=== PATIENT | female | born 1980 | race Caucasian/White ===

== ENCOUNTER 2020-08-04 10:35 | Emergency (ER) | payer OTHER ==
[~2020-08-04] VITALS: Ht 165.1 cm; Wt 133.7 kg
[2020-08-04 11:32] LABS: BASOPHILS % (AUTO) 0.8 % (0-1); EOSINOPHILS # (AUTO) 0.1 X10'3 (0-0.9); EOSINOPHILS % (AUTO) 2.1 % (0-6); HEMATOCRIT 40.4 % (35.0-45.0); HEMOGLOBIN 13.5 g/dl (12.0-16.0); LYMPHOCYTES # (AUTO) 1.5 X10'3 (1.1-4.8); MEAN CORPUSCULAR HEMOGLOBIN 29.2 PG (27.0-31.0); MEAN CORPUSCULAR HGB CONC 33.4 g/dL (33.0-36.5); MEAN CORPUSCULAR VOLUME 87.4 FL (78-98); MEAN PLATELET VOLUME 8.1 FL (7.4-10.4); MONOCYTES # (AUTO) 0.3 X10'3 (0-0.9); MONOCYTES % (AUTO) 5.6 % (2-12); NEUTROPHILS # (AUTO) 3.7 X10'3 (1.8-7.7); NEUTROPHILS % (AUTO) 65.5 % (42-75); PLATELET COUNT 280 X10'3 (140-440); RED BLOOD COUNT 4.63 X10'6 (4.20-5.60); RED CELL DISTRIBUTION WIDTH 13.8 % (11.5-14.5); WHITE BLOOD COUNT 5.7 X10'3 (4.5-11.0)
[2020-08-04 11:42] LABS: ALANINE AMINOTRANSFERASE 35 U/L (12-78); ALBUMIN 3.5 G/DL (3.4-5.0); ALKALINE PHOSPHATASE 59 IU/L (46-116); ANION GAP 12 (8-16); ASPARTATE AMINO TRANSFERASE 13 U/L (10-37); BILIRUBIN,TOTAL 0.5 MG/DL (0.1-1.0); BLOOD UREA NITROGEN 10 MG/DL (7-18); BUN/CREATININE RATIO 16.7 (6.6-38.0); CALCIUM 9.2 MG/DL (8.5-10.1); CHLORIDE 106 MMOL/L (99-107); GLUCOSE 117 MG/DL (70-104); SODIUM 142 MMOL/L (135-145); TOTAL CARBON DIOXIDE 24.1 MMOL/L (24-32); eGFR > 90 ML/MIN
[2020-08-04 12:41] VITALS: BP 153/97
[2020-08-04] MEDS ORDERED: ketorolac tromethamine 15mg/ml inj. IM ONE (13:15)
== END 2020-08-04 13:47 | disposition home or self-care (01) ==
LOC: ER 10:35
DX: R07.89 Other chest pain (principal); R42 Dizziness and giddiness
CPT/HCPCS: 36415; 71045; 80053; 83880; 84484; 85025; 93005; 96372; 99285; J1885

== ENCOUNTER 2023-11-15 10:57 | Emergency (ER) | payer OTHER ==
[~2023-11-15] VITALS: Ht 165.1 cm; Wt 102.0 kg
[2023-11-15 11:26] LABS: BASOPHILS % (AUTO) 0.5 % (0-1); EOSINOPHILS # (AUTO) 0.1 X10'3 (0-0.9); EOSINOPHILS % (AUTO) 1.3 % (0-6); HEMATOCRIT 41.3 % (35.0-45.0); HEMOGLOBIN 13.6 g/dl (12.0-16.0); LYMPHOCYTES # (AUTO) 1.6 X10'3 (1.1-4.8); LYMPHOCYTES % (AUTO) 27.6 % (21-51); MEAN CORPUSCULAR HEMOGLOBIN 29.1 PG (27.0-31.0); MEAN CORPUSCULAR HGB CONC 32.8 g/dL (33.0-36.5); MEAN CORPUSCULAR VOLUME 88.6 FL (78-98); MEAN PLATELET VOLUME 7.9 FL (7.4-10.4); MONOCYTES # (AUTO) 0.3 X10'3 (0-0.9); MONOCYTES % (AUTO) 5.5 % (2-12); NEUTROPHILS # (AUTO) 3.8 X10'3 (1.8-7.7); NEUTROPHILS % (AUTO) 65.1 % (42-75); PLATELET COUNT 292 X10'3 (140-440); RED BLOOD COUNT 4.66 X10'6 (4.20-5.60); RED CELL DISTRIBUTION WIDTH 13.9 % (11.5-14.5); WHITE BLOOD COUNT 5.8 X10'3 (4.5-11.0)
[2023-11-15 11:40] LABS: ALANINE AMINOTRANSFERASE 38 U/L (12-78); ALBUMIN 3.6 G/DL (3.4-5.0); ALKALINE PHOSPHATASE 55 IU/L (46-116); ANION GAP 8 (8-16); ASPARTATE AMINO TRANSFERASE 17 U/L (10-37); BILIRUBIN,TOTAL 0.5 MG/DL (0.1-1.0); BLOOD UREA NITROGEN 11 MG/DL (7-18); CALCIUM 8.7 MG/DL (8.5-10.1); CHLORIDE 105 MMOL/L (99-107); CREATININE 0.55 MG/DL (0.40-0.90); GLUCOSE 113 MG/DL (70-104); POTASSIUM 3.8 MMOL/L (3.5-5.1); SODIUM 139 MMOL/L (135-145); TOTAL CARBON DIOXIDE 25.6 MMOL/L (24-32); TOTAL PROTEIN 7.2 G/DL (6.4-8.2); eCRCL 116 ML/MIN; eGFR > 90 ML/MIN
[2023-11-15 11:48] LABS: PRO BRAIN NATRIURETIC PEPTIDE 39 PG/ML (0-125)
[2023-11-15 13:02] LABS: HCG SERUM QL NEGATIVE; LIPASE 25 U/L (16-77); MAGNESIUM 1.8 MG/DL (1.5-2.4)
[2023-11-15 13:10] LABS: ETHANOL < 10 MG/DL (<10)
[2023-11-15 13:15] VITALS: BP 130/86; PULSE 58; RESP 15; TEMP 97.5; O2SAT 99
[2023-11-15] MEDS ORDERED: NAPR-56 PO (13:27)
[2023-11-15 13:33] LABS: URINE HCG NEGATIVE (NEG)
[2023-11-15 13:41] LABS: URINE AMPHETAMINE SCREEN NEGATIVE (Neg); URINE BARBITUATE SCREEN NEGATIVE (Neg); URINE BENZODIAZEPINES SCREEN NEGATIVE (Neg); URINE CANNABINOID SCREEN POSITIVE (Neg); URINE COCAINE SCREEN NEGATIVE (Neg); URINE METHADONE SCREEN NEGATIVE (Neg); URINE OPIATE SCREEN NEGATIVE (Neg); URINE PHENCYCLIDINE SCREEN NEGATIVE (Neg)
== END 2023-11-15 13:45 | disposition home or self-care (01) ==
LOC: ER 10:58
DX: M25.512 Pain in left shoulder (principal); R07.89 Other chest pain; R42 Dizziness and giddiness; E03.9 Hypothyroidism, unspecified; F17.200 Nicotine dependence, unspecified, uncomplicated; Z79.899 Other long term (current) drug therapy
CPT/HCPCS: 36415; 71045; 73030; 80053; 80305; 80320; 81025; 83690; 83735; 83880; 84484; 84703; 85025; 93005; 99285

== ENCOUNTER 2024-09-14 20:04 | Emergency (ER) | payer BC, OTHER ==
[~2024-09-14] VITALS: Ht 165.1 cm; Wt 125.0 kg
[2024-09-14 22:36] LABS: MEAN PLATELET VOLUME 8.5 FL (7.4-10.4); RED CELL DISTRIBUTION WIDTH 13.6 % (11.5-14.5)
[2024-09-14 22:38] LABS: URINE HCG NEGATIVE (NEG)
[2024-09-14 22:39] LABS: LEUKOCYTE ESTERASE ,URINE NEGATIVE (Neg); NITRITES, URINE NEGATIVE (Neg); OCCULT BLOOD,URINE NEGATIVE (Neg)
[2024-09-14 22:42] LABS: UA COLLECTION TYPE NON-SPECIFIED
[2024-09-14 22:45] LABS: CREATININE 0.66 MG/DL (0.40-0.90); TOTAL CARBON DIOXIDE 26.7 MMOL/L (24-32); eCRCL 96 ML/MIN; eGFR > 90 ML/MIN
--- NOTE | 2024-09-14 22:50 | Physician Documentation ---
History of Present Illness ~ Chief Complaint: See Chief Complaint Stated Complaint: NECK AND MOUTH PAIN Time Seen by MD: 22:49 Mode of Arrival: POV, Ambulatory HPI 44-year-old female, history of hypothyroidism, recent vaginitis, presenting with neck swelling and multiple complaints She tells me that she was recently seen at urgent care and prescribed azithromycin and metronidazole for vaginitis. She has been taking these regularly. She reports having gradually worsening swelling and pain to her anterior neck, especially over the past couple of days. She states it is very sore and tender. No swelling inside the mouth. No difficulty swallowing or breathing. She does have a history of hypothyroidism, and has not had her medications for about a year. She does not have a primary care doctor. Also reports multiple other complaints. She reports having intermittent headaches. She has intermittent shooting pain down both of her upper arms. She reports intermittent gastritis. She continues to have some lower abdominal discomfort related to the vaginitis. She has a rash that developed under her left breast and in her right axillary region after the antibiotics started. No fevers. No productive cough. No current shortness of breath. Medication Reconciliation Allergies: Coded Allergies: No Known Allergies (Unverified , 11/15/23) Past Medical History Past Medical History: Hypothyroidism Past Surgical History: other Alcohol Use: Occasionally Drug Use: marijuana Lives with: Other Lives In: Home Occupation: employed Review of Systems Constitutional: Denies: fever ENT: Denies: throat swelling Respiratory: Denies: shortness of breath Cardiovascular: Reports: chest pain Gastrointestinal: Reports: abdominal pain, nausea; Denies: vomiting, diarrhea Physical Exam Vital Signs: Temperature: 97.7, Source: Oral, Heart Rate: 66, Respiratory Rate: 14, BP: 125/75, Pulse Oximetry: 99, Weight: 125.000 Oxygen Flow Rate: 0 Physical Exam General: This is an anxious appearing young woman, family at bedside HEENT/neck: The patient has mild swelling and generalized tenderness on palpation of the anterior neck, without overlying erythema or skin changes. No stridor. Intraoral exam shows no swelling under the tongue or in the posterior oropharynx. She is swallowing secretions without difficulty Heart: Regular rate and rhythm, normal-appearing peripheral perfusion Lungs: Clear breath sounds bilateral, normal work of breathing, normal oxygen saturation on room air Abdomen: Soft, nondistended, mild discomfort on palpation in the pelvic region, otherwise no tenderness Neuro: Alert and oriented. Normal sensation to light touch in the face, neck, arms and hands bilateral Psychiatric: Appears mildly anxious but is cooperative with exam Progress Results/Orders Results/Orders Orders - VANESSA ROBB MD Straight Cath For Urine Sample (09/14/24 22:12) Ct Neck Soft Tissues (09/15/24 00:03) Completed Orders - VANESSA ROBB MD Urinalysis, Cult If Indicated (09/14/24 22:12) Hcg, Ur Ql (09/14/24 22:12) Cbc/Diff (09/14/24 22:12) Lipase (09/14/24 22:12) CMP (09/14/24 22:12) Free T4 (09/14/24 21:21) TSH (09/14/24 21:21) Ct Neck Soft Tissues (09/15/24 00:03) Iohexol 350mg/Ml 100ml (Omnipaque 350mg/ (09/15/24 00:28) Vital Signs 09/14/24 09/14/24 09/14/24 09/14/24 20:07 21:09 21:09 22:00 Temp 97.7 Pulse 72 64 66 Resp 15 16 16 14 B/P (MAP) 153/93 154/91 (112) 125/75 (92) Pulse Ox 98 99 99 O2 Flow Rate 0 09/14/24 09/15/24 09/15/24 09/15/24 23:00 00:12 01:05 01:25 Temp 97.7 Pulse 71 66 64 Resp 17 19 16 B/P (MAP) 130/82 (98) 137/88 (104) 115/66 (82) Pulse Ox 98 97 98 O2 Flow Rate 0 Laboratory Tests Test 09/14/24 21:21 09/14/24 22:10 White Blood Count 5.5 Red Blood Count 4.56 Hemoglobin 14.1 Hematocrit 40.6 Mean Corpuscular Volume 89.0 Mean Corpuscular Hemoglobin 31.0 Mean Corpuscular Hemoglobin Concent 34.8 Red Cell Distribution Width 13.6 Platelet Count 277 Mean Platelet Volume 8.5 Neutrophils (%) (Auto) 59.3 Lymphocytes (%) (Auto) 27.1 Monocytes (%) (Auto) 7.0 Eosinophils (%) (Auto) 5.8 Basophils (%) (Auto) 0.8 Neutrophils # (Auto) 3.2 Lymphocytes # (Auto) 1.5 Monocytes # (Auto) 0.4 Eosinophils # (Auto) 0.3 Basophils # (Auto) 0.0 CBC Comment Sodium Level 138 Potassium Level 3.4 L Chloride Level 104 Carbon Dioxide Level 26.7 Anion Gap 7 L Blood Urea Nitrogen 11 Creatinine 0.66 Estimated GFR/1.73 m2 > 90 BUN/Creatinine Ratio 16.7 Glucose Level 114 H Calcium Level 8.6 Total Bilirubin 0.5 Aspartate Amino Transf (AST/SGOT) 41 H Alanine Aminotransferase (ALT/SGPT) 80 H Alkaline Phosphatase 64 Total Protein 7.3 Albumin 3.9 Globulin 3.4 Albumin/Globulin Ratio 1.1 Lipase 49 Thyroid Stimulating Hormone (TSH) 5.19 H Free Thyroxine 1.12 Chemistry Comments Urine Specimen Description Non-specified Urine Color Yellow Urine Clarity Clear Urine pH 6.0 Urine Specific [place] <=1.005 Urine Protein Negative Urine Glucose (UA) Negative Urine Ketones Trace H Urine Occult Blood Negative Urine Nitrite Negative Urine Bilirubin Negative Urine Urobilinogen 0.2 Urine Leukocyte Esterase Negative Urine Culture Indicated Not ind Volume Urine Centrifuged 10 ml Urine HCG, Qualitative Negative Urine Comment EKG/XRAY/CT/US/VASC/MRI CT : Impression I personally reviewed the CT scan, and this shows no significant anterior neck swelling, fluid collection or abscess, or airway compromise Medical Decision Making Additional Comment Differential includes hypothyroidism, thyroiditis, goiter, neck infection including cellulitis or deep space infection, dental infection, cervical spine process, dehydration, electrolyte derangement, anxiety, muscle spasm Assessment The patient presents with multiple symptoms, including concern for thyroid dysfunction, and neck swelling. Her laboratory testing is actually unremarkable, no significant leukocytosis. Thyroid function shows normal T4. After shared decision-making conversation we proceeded with neck imaging, which shows no evidence of a neck infection, mass, or inflammation. Her cervical spine is also unremarkable. Following this evaluation she was anxious to be discharged and return home. Overall, the exact cause of her symptoms is unclear. I do not see evidence of a dangerous medical or surgical emergency at this time. She was reassured and discharged with a plan to continue trying to arrange primary care follow-up. Return precautions given. Departure Time of Disposition: 01:17 Disposition: 01 HOME / SELF CARE / HOMELESS Impression: Primary Impression: Neck pain Condition: Stable Referrals: NO PRIMARY CARE PROVIDER (PCP) Education Educated: Patient, Family Educated regarding: diagnosis, need for follow up Signature Scribe Signature: na Attestation: VANESSA Avina MD Sep 14, 2024 22:50
--- NOTE | 2024-09-15 01:04 | RADIOLOGY REPORT ---
EXAM: CT CT NECK SOFT TISSUES W/ IV CONTRAST INDICATION: Anterior neck swelling and pain. Also has pain shooting down arms Exam Date: 09/15/2024 12:30 AM COMPARISON: None TECHNIQUE: CT of the neck with intravenous contrast. RADIATION DOSE: CTDIvol: mGy, DLP: mGy*cm CONTRAST: Type of contrast: Contrast injected: ml Contrast ingested: ml FINDINGS: There is no evidence of neck mass, pathologically enlarged lymph nodes, or fluid collection. Fat planes of the neck appear intact. Airway and larynx are unremarkable. Parotid, submandibular and thyroid glands are unremarkable. Vascular structures of the neck appear patent. Visualized lung apices are clear. Limited visualized portions of the brain are unremarkable. Osseou s structures are unremarkable. IMPRESSION: No evidence of neck mass, pathologically enlarged lymph nodes, or fluid collection.
[2024-09-15 01:05] VITALS: BP 115/66; PULSE 64; RESP 16; O2SAT 98
[2024-09-15 01:25] VITALS: TEMP 97.7
== END 2024-09-15 01:29 | disposition home or self-care (01) ==
LOC: ER 20:05
DX: M54.2 Cervicalgia (principal); R51.9 Headache, unspecified; E03.9 Hypothyroidism, unspecified; F12.90 Cannabis use, unspecified, uncomplicated
CPT/HCPCS: 36415; 70491; 80053; 81003; 81025; 83690; 84439; 84443; 85025; 99285; Q9967